=== PATIENT | female | born 1990 | race Hispanic/Latino ===

== ENCOUNTER → 2020-10-21 14:17 | Outpatient (CLI) | payer OTHER, SELFPAY ==
--- NOTE | 2020-10-21 | DI.MRI.S_ITS ---
PROCEDURE: MR KNEE RT WO CON INDICATIONS: DERANGEMENT OF ANTERIOR HORN OF MEDIAL MINISCUS TECHNIQUE: Noncontrast sagittal PD fast spin echo and T2 fast spin echo with fat saturation, sagittal 3-D FLASH with fat saturation; coronal T1 spin echo and PD fast spin echo with fat saturation, and axial PD fast spin echo with fat saturation through the knee. COMPARISON: None. FINDINGS: Image quality: Excellent. Menisci: The medial meniscus is intact. Lateral meniscus demonstrates a discoid configuration without tear. Cruciate ligaments: The anterior and posterior cruciate ligaments appear intact. Medial structures: The medial collateral ligament appears intact. Visualized portions of the pes anserinus tendons appear normal. Small amount of medial bursal fluid. Lateral structures: The lateral collateral ligament, long and short heads of the biceps femoris tendon appear intact. The popliteus tendon appears normal. Iliotibial band appears normal. Anterior structures: The quadriceps and patellar tendons appear intact. Patellar alignment is normal. No femoral trochlear dysplasia or ventral trochlear prominence. No edema in the infrapatellar fat pad. Bones and cartilage: No bone marrow contusions or fractures. There is a 2 mm diameter region of high-grade articular cartilage loss overlying the medial patellar facet. Articular cartilage fibrillation overlies the medial and lateral patellar facets. Joint space: There is physiologic knee joint fluid. No Roque's cyst. Normal appearing synovial plicae are incidentally noted. IMPRESSION: 1. No internal derangement. 2. Discoid lateral meniscus without tear. 3. Small focal region of high-grade articular cartilage loss overlying the medial patellar facet. 4. Mild medial bursitis. Dictated by: Dhruv Roberts M.D. on 10/21/2020 at 15:22 Approved by: Dhruv Roberts M.D. on 10/21/2020 at 15:23
== END ==
PROVIDERS: Referring Provider Specialist; Visit Provider Specialist
DX: S83.281A Other tear of lateral meniscus, current injury, right knee, initial encounter (principal); M71.561 Other bursitis, not elsewhere classified, right knee
CPT/HCPCS: 73721